=== PATIENT | female | born 1930 | race Caucasian/White ===

== ENCOUNTER 2016-11-04 10:50 | Outpatient (CLI) | payer MEDICARE, OTHER | END 2016-11-04 10:51 | disposition home or self-care (01) | DX: I10 Essential (primary) hypertension (principal); E78.5 Hyperlipidemia, unspecified; D50.9 Iron deficiency anemia, unspecified; E03.9 Hypothyroidism, unspecified ==

== ENCOUNTER 2017-04-25 09:50 | Outpatient (CLI) | payer MEDICARE, OTHER ==
[2017-04-25 13:10] LABS: BASOPHILS % (AUTO) 0.6 %; EOSINOPHILS # (AUTO) 0.3 10^3/uL (0.0-0.7); EOSINOPHILS % (AUTO) 3.9 %; HCT - HEMATOCRIT 36.4 % (37.0-47.0); HGB - HEMOGLOBIN 12.6 g/dL (12.0-16.0); LYMPHOCYTES # (AUTO) 2.8 10^3/uL (1.5-3.5); LYMPHOCYTES % (AUTO) 33.4 %; MEAN CORPUSCULAR HEMOGLOBIN 30.5 pg (27.0-31.0); MEAN CORPUSCULAR HGB CONC 34.7 g/dL (32.0-36.0); MEAN PLATELET VOLUME 6.5 fL (7.9-10.8); MONOCYTES # (AUTO) 0.8 10^3/uL (0.0-1.0); NEUTROPHILS # (AUTO) 4.5 10^3/uL (1.5-6.6); NEUTROPHILS % (AUTO) 53.1 %; RED BLOOD COUNT 4.13 10^6/uL (4.20-5.40); RED CELL DISTRIBUTION WIDTH 14.1 % (12.0-15.0); UNCORRECTED WHITE BLOOD COUNT 8.5 x10^3/uL; WHITE BLOOD COUNT 8.5 x10^3/uL (4.8-10.8)
[2017-04-25 13:35] LABS: FERRITIN 24.9 ng/mL (11.0-306.8)
[2017-04-25 13:48] LABS: THYROID STIMULATING HORMONE 8.27 uIU/mL (0.34-5.60)
[2017-04-25 14:22] LABS: BILIRUBIN,TOTAL 0.5 mg/dL (0.2-1.0); BUN - BLOOD UREA NITROGEN 21 mg/dL (6-20); CALCIUM 9.9 mg/dL (8.5-10.3); CARBON DIOXIDE - CO2 28 mmol/L (21-32); CHLORIDE 98 mmol/L (101-111); CHOL/HDL RATIO 3.5 (<4.4); CHOLESTEROL 187 mg/dL; CREATININE 1.1 mg/dL (0.4-1.0); GFR - MDRD 47 (>89); GLUCOSE 91 mg/dL (70-100); HDL CHOLESTEROL 53 mg/dL; IRON 47 ug/dL (28-170); LDL/HDL RATIO 2.3 (<4.4); POTASSIUM 4.4 mmol/L (3.5-5.0); SODIUM 134 mmol/L (135-145); TOTAL IRON BINDING CAPACITY 367 ug/dL (250-450); TOTAL PROTEIN 6.9 g/dL (6.7-8.2); TRANSFERRIN 262 mg/dL (192-382); TRIGLYCERIDES 69 mg/dL; VLDL CHOLESTEROL 14 mg/dL
== END 2017-04-25 09:51 | disposition home or self-care (01) ==
LOC: LAB.WCP 09:50
PROVIDERS: ATTEND Family Medicine
DX: D50.9 Iron deficiency anemia, unspecified (principal); I10 Essential (primary) hypertension; R53.83 Other fatigue; E78.5 Hyperlipidemia, unspecified; E03.9 Hypothyroidism, unspecified
CPT/HCPCS: 36415; 80053; 80061; 82728; 83540; 84443; 84466; 85025

== ENCOUNTER 2017-05-26 11:58 | Outpatient (CLI) | payer MEDICARE, OTHER | END 2017-05-26 11:59 | disposition home or self-care (01) | LOC: LAB 11:58 | PROVIDERS: ATTEND Family Medicine | DX: E03.9 Hypothyroidism, unspecified (principal) | CPT/HCPCS: 36415; 84443 ==

== ENCOUNTER 2017-09-01 14:43 | Outpatient (CLI) | payer MEDICARE, OTHER ==
--- NOTE | 2017-09-01 19:19 | CT Report ---
CT BRAIN WITHOUT CONTRAST: 09/01/2017 CLINICAL INDICATION: Fall. Axial CT images of the brain were obtained without contrast. In accordance with CT protocol optimization, one or more of the following dose reduction techniques w ere utilized for this exam: automated exposure control, adjustment of mA and/or KV based on patient size, or use of iterative reconstructive technique. No previous CT is available for comparison. The ventricles and sulci demonstrate moderate symmetric enlargement, compatible with atrophy. The ba silar cisterns are patent. There is no evidence of intracranial hemorrhage, mass effect, or midline shift. The visualized orbital contents and paranasal sinuses are unremarkable. No calvarial fractur e is appreciated. IMPRESSION: ATROPHY. NO EVIDENCE OF HEMORRHAGE OR MASS EFFECT. JOB #: [id number] EXT JOB #:[id number]
== END 2017-09-01 14:44 | disposition home or self-care (01) ==
LOC: DI 14:43
PROVIDERS: ATTEND Family Medicine
DX: S09.8XXA Other specified injuries of head, initial encounter (principal); G31.9 Degenerative disease of nervous system, unspecified
CPT/HCPCS: 70450

== ENCOUNTER 2017-10-11 10:29 | Outpatient (CLI) | payer MEDICARE, OTHER ==
[2017-10-11 11:16] LABS: BASOPHILS % (AUTO) 0.7 %; EOSINOPHILS # (AUTO) 0.3 10^3/uL (0.0-0.7); EOSINOPHILS % (AUTO) 3.8 %; HGB - HEMOGLOBIN 12.5 g/dL (12.0-16.0); LYMPHOCYTES # (AUTO) 1.9 10^3/uL (1.5-3.5); LYMPHOCYTES % (AUTO) 28.6 %; MEAN CORPUSCULAR HEMOGLOBIN 28.5 pg (27.0-31.0); MEAN CORPUSCULAR HGB CONC 33.6 g/dL (32.0-36.0); MEAN CORPUSCULAR VOLUME 84.8 fL (81.0-99.0); MEAN PLATELET VOLUME 6.3 fL (7.9-10.8); MONOCYTES # (AUTO) 0.6 10^3/uL (0.0-1.0); MONOCYTES % (AUTO) 9.4 %; NEUTROPHILS # (AUTO) 3.8 10^3/uL (1.5-6.6); NEUTROPHILS % (AUTO) 57.5 %; PLT - PLATELET COUNT 301 10^3/uL (130-450); RED BLOOD COUNT 4.38 10^6/uL (4.20-5.40); RED CELL DISTRIBUTION WIDTH 16.2 % (12.0-15.0); WHITE BLOOD COUNT 6.6 x10^3/uL (4.8-10.8)
[2017-10-11 11:32] LABS: % IRON SATURATION 10 % (20-50); ALBUMIN 3.7 g/dL (3.2-5.5); ALKALINE PHOSPHATASE 71 IU/L (42-121); ALT ALANINE AMINOTRANSFERASE 17 IU/L (10-60); AST ASPARTATE AMINOTRANSFERASE 30 IU/L (10-42); BILIRUBIN,TOTAL 0.6 mg/dL (0.2-1.0); BUN - BLOOD UREA NITROGEN 21 mg/dL (6-20); CALCIUM 10.1 mg/dL (8.5-10.3); CARBON DIOXIDE - CO2 28 mmol/L (21-32); CHLORIDE 100 mmol/L (101-111); CHOL/HDL RATIO 3.1 (<4.4); CHOLESTEROL 185 mg/dL; GFR - MDRD 52 (>89); GLUCOSE 95 mg/dL (70-100); HDL CHOLESTEROL 59 mg/dL; IRON 41 ug/dL (28-170); LDL CHOLESTEROL,CALCULATED 111 mg/dL; LDL/HDL RATIO 1.9 (<4.4); SODIUM 137 mmol/L (135-145); TOTAL IRON BINDING CAPACITY 405 ug/dL (250-450); TOTAL PROTEIN 7.5 g/dL (6.7-8.2); TRANSFERRIN 289 mg/dL (192-382); VLDL CHOLESTEROL 15 mg/dL
[2017-10-11 11:45] LABS: THYROID STIMULATING HORMONE 3.13 uIU/mL (0.34-5.60)
[2017-10-11 11:50] LABS: FERRITIN 31.7 ng/mL (11.0-306.8)
== END 2017-10-11 10:30 | disposition home or self-care (01) ==
LOC: LAB 10:29
PROVIDERS: ATTEND Family Medicine
DX: I10 Essential (primary) hypertension (principal); D50.9 Iron deficiency anemia, unspecified; E03.9 Hypothyroidism, unspecified; E78.5 Hyperlipidemia, unspecified
CPT/HCPCS: 36415; 80053; 80061; 82728; 83540; 84443; 84466; 85025

== ENCOUNTER 2017-10-14 08:00 | Outpatient (CLI) | payer MEDICARE, OTHER ==
[2017-10-14 11:51] LABS: H. PYLORIS ANTIGEN STL NEGATIVE (Negative)
== END 2017-10-14 08:01 | disposition home or self-care (01) ==
LOC: LAB.R 08:00
PROVIDERS: ATTEND Family Medicine
DX: K29.60 Other gastritis without bleeding (principal)
CPT/HCPCS: 87338

== ENCOUNTER 2017-11-28 11:48 | Outpatient (CLI) | payer MEDICARE, OTHER ==
[2017-11-28 19:43] LABS: % IRON SATURATION 11 % (20-50); IRON 41 ug/dL (28-170); TOTAL IRON BINDING CAPACITY 364 ug/dL (250-450); TRANSFERRIN 260 mg/dL (192-382)
[2017-11-28 19:55] LABS: BASOPHILS % (AUTO) 0.5 %; EOSINOPHILS # (AUTO) 0.2 10^3/uL (0.0-0.7); EOSINOPHILS % (AUTO) 2.9 %; HGB - HEMOGLOBIN 12.6 g/dL (12.0-16.0); LYMPHOCYTES # (AUTO) 1.7 10^3/uL (1.5-3.5); LYMPHOCYTES % (AUTO) 24.7 %; MEAN CORPUSCULAR HEMOGLOBIN 28.4 pg (27.0-31.0); MEAN CORPUSCULAR HGB CONC 33.2 g/dL (32.0-36.0); MEAN CORPUSCULAR VOLUME 85.6 fL (81.0-99.0); MEAN PLATELET VOLUME 7.1 fL (7.9-10.8); MONOCYTES # (AUTO) 0.7 10^3/uL (0.0-1.0); MONOCYTES % (AUTO) 10.8 %; NEUTROPHILS # (AUTO) 4.2 10^3/uL (1.5-6.6); NEUTROPHILS % (AUTO) 61.1 %; PLT - PLATELET COUNT 296 10^3/uL (130-450); RED BLOOD COUNT 4.43 10^6/uL (4.20-5.40); RED CELL DISTRIBUTION WIDTH 17.1 % (12.0-15.0); WHITE BLOOD COUNT 6.9 x10^3/uL (4.8-10.8)
== END 2017-11-28 11:49 | disposition home or self-care (01) ==
LOC: LAB.WCP 11:48
PROVIDERS: ATTEND Family Medicine
DX: D50.9 Iron deficiency anemia, unspecified (principal)
CPT/HCPCS: 36415; 82728; 83540; 84466; 85025

== ENCOUNTER 2017-12-15 09:53 | Outpatient (CLI) | payer MEDICARE, OTHER ==
[2017-12-15] MEDS ORDERED: REGADENOSON 0.4 MG/5 ML SYRINGE IVP ONE ×2 (10:53→13:47)
--- NOTE | 2017-12-15 15:26 | CARDIAC PROCEDURE NOTE ---
DATE OF SERVICE: 12/15/2017 Physician: ANA Hummel PRIMARY CARE PHYSICIAN: Dr. Arlette Nicholson PROCEDURE: Pharmacologic cardiac stress test. PROCEDURE SYMPTOMS: History of cardiac arrhythmias, atypical chest pain. CARDIAC RISK FACTORS: Include age, hypertension and hyperlipidemia. The patient has previously had a pharmacologic stress test. CLINICAL HISTORY: An 87-year-old female without known coronary artery disease. She has no current symptoms and no medications were held. INITIAL RESTING VITAL SIGNS: BP 162/68, heart rate 49, height 60 inches, weight 170 pounds, BMI 32.4. PROCEDURE AND FINDINGS: Patient identity and date verified, consent signed, pharmaceutical check. Pharmacologic stress testing was performed with Lexiscan at a dose of 0.4 mg over 10 seconds. The heart rate increased to 83 beats per minute from the infusion. The blood pressure response was normal during the stress procedure. The patient developed mild infusion-related symptoms, which included a tight chest, deep breathing and headache. These resolved spontaneously. The resting electrocardiogram demonstrated sinus rhythm with sinus pauses and no ST or T-wave changes. There was no ST segment depression with stress. The sinus pauses were less than 1 second in length. FINAL IMPRESSION 1. Sinus rhythm with occasional sinus pauses. 2. Negative electrocardiogram for ischemia in the setting of vasodilator stress. 3. Nondiagnostic stress test for angina. 4. Await myocardial perfusion report. TD: 12/15/2017 15:25
[2017-12-15 16:12] VITALS: BP 162/68
--- NOTE | 2017-12-15 16:43 | Nuclear Medicine Report ---
EXAM: SINGLE-ISOTOPE PHARMACOLOGICAL STRESS TEST WITH REGADENOSON. SINGLE-ISOTOPE AND ONE-DAY REST/STRESS M YOCARDIAL PERFUSION SCANS WITH TOMOGRAPHIC IMAGING, QUANTITATIVE ANALYSIS, WALL MOTION ANALYSIS AND C ALCULATION OF EJECTION FRACTION. EXAM DATE: 12/15/2017 02:41 PM. CLINICAL HISTORY: CHEST PAIN, CARDIAC ARRHYTHMIA. COMPARISON: None. TECHNIQUE: After the intravenous administration of 9.0 mCi of Tc-99m sestamibi, a rest myocardial perfusion scan was done with tomography. Motion correction was applied when appropriate. After an appropriate delay, pharmacological stress was performed with the infusion of 0.4 mg regadeno son per protocol. According to protocol, 40.9 mCi of Tc-99m sestamibi was injected for stress myocard ial perfusion scan. Motion correction was applied when appropriate. Gated tomographic images were obtained for wall motion analysis and computation of left ventricular e jection fraction. FINDINGS: Perfusion images: Left ventricular chamber size is normal at rest and unchanged at stress. No convincing fixed perfusion deficits. No convincing reversible perfusion deficits. Gated images: No focal wall motion abnormality. The left ventricular ejection fraction is estimated at 72% (normal > 50%). IMPRESSION: 1. No convincing reversible perfusion deficits to indicate stress-induced ischemia. 2. No convincing fixed perfusion deficits. 3. Left ventricular ejection fraction of 72% (normal > 50%). 4. No focal wall motion abnormalities. [facility] Referring Provider Line: [phone] SITE ID: [id number]
== END 2017-12-15 09:54 | disposition home or self-care (01) ==
LOC: DI 09:53
PROVIDERS: ATTEND Family Medicine
DX: I49.9 Cardiac arrhythmia, unspecified (principal); R07.89 Other chest pain; I10 Essential (primary) hypertension; E78.5 Hyperlipidemia, unspecified
CPT/HCPCS: 78452; 93017; A9500; J2785

== ENCOUNTER 2017-12-20 17:09 | Outpatient (CLI) | payer MEDICARE, OTHER ==
[2017-12-20 17:27] LABS: BASOPHILS # (AUTO) 0.1 10^3/uL (0.0-0.1); BASOPHILS % (AUTO) 0.8 %; EOSINOPHILS # (AUTO) 0.3 10^3/uL (0.0-0.7); EOSINOPHILS % (AUTO) 4.2 %; HGB - HEMOGLOBIN 12.6 g/dL (12.0-16.0); LYMPHOCYTES # (AUTO) 2.1 10^3/uL (1.5-3.5); LYMPHOCYTES % (AUTO) 27.6 %; MEAN CORPUSCULAR HEMOGLOBIN 28.4 pg (27.0-31.0); MEAN CORPUSCULAR HGB CONC 33.9 g/dL (32.0-36.0); MEAN CORPUSCULAR VOLUME 83.8 fL (81.0-99.0); MEAN PLATELET VOLUME 5.9 fL (7.9-10.8); MONOCYTES # (AUTO) 0.7 10^3/uL (0.0-1.0); MONOCYTES % (AUTO) 10.1 %; NEUTROPHILS # (AUTO) 4.3 10^3/uL (1.5-6.6); NEUTROPHILS % (AUTO) 57.3 %; PLT - PLATELET COUNT 286 10^3/uL (130-450); RED BLOOD COUNT 4.44 10^6/uL (4.20-5.40); RED CELL DISTRIBUTION WIDTH 15.2 % (12.0-15.0); WHITE BLOOD COUNT 7.5 x10^3/uL (4.8-10.8)
[2017-12-20 17:41] LABS: ALBUMIN 3.7 g/dL (3.2-5.5); ALBUMIN/GLOBULIN RATIO 0.9 (1.0-2.2); BILIRUBIN,TOTAL 0.6 mg/dL (0.2-1.0); CALCIUM 9.9 mg/dL (8.5-10.3); CREATININE 0.9 mg/dL (0.4-1.0); TOTAL PROTEIN 7.6 g/dL (6.7-8.2)
[2017-12-20] MEDS ORDERED: IOPAMIDOL-300 100 ML VIAL ONE (17:52)
[2017-12-20] MEDS ORDERED: IOPAMIDOL-300 100 ML VIAL IVP ONE (18:39)
--- NOTE | 2017-12-20 19:39 | CT Report ---
EXAM: CT ANGIOGRAM CHEST EXAM DATE: 12/20/2017 06:36 PM. CLINICAL HISTORY: Dyspnea on exertion for 10 days. COMPARISON: None. TECHNIQUE: Routine helical imaging was performed through the chest in the pulmonary arterial phase. I V Contrast: 80 cc of Isovue 300. Reconstructions: Coronal 3-D MIP reconstructions.Sagittal and freitas l. In accordance with CT protocol optimization, one or more of the following dose reduction techniques w ere utilized for this exam: automated exposure control, adjustment of mA and/or KV based on patient s ize, or use of iterative reconstructive technique. FINDINGS: Pulmonary Arteries: Diagnostic quality: Adequate through the segmental arteries. No evidence for acute or chronic pulmona ry emboli. RV/LV is within normal limits. There is no interventricular septal bowing. There is no reflux of cont rast material in the IVC. Lungs/Pleura: Mild peripheral reticulation without honeycombing or groundglass opacities. No consolid ation, nodules, or edema. No effusions or pneumothorax. Mediastinum: Normal. No cardiac enlargement or adenopathy. Thoracic Aorta: Unremarkable. Upper Abdomen: Unremarkable. Other: Levoscoliosis. No compression fractures. IMPRESSION: 1. No pulmonary emboli. 2. No aortic aneurysm. 3. Mild peripheral reticulation compatible with chronic lung disease, with no acute pulmonary abnorma lities. 4. Levoscoliosis. [facility] The call report notification system was initiated by Dr. Mario Alberto Garcia at 19:26 hrs on 12/20/17. The above findings were discussed with Dr. Russ by Dr. Mario Alberto Garcia at 19:37 hrs on 12/20/17. Referring Provider Line: [phone] SITE ID: [id number]
== END 2017-12-20 17:10 | disposition home or self-care (01) ==
LOC: LAB 17:09 → DI 17:10
PROVIDERS: ATTEND Family Medicine
DX: R05 Cough (principal); R06.00 Dyspnea, unspecified
CPT/HCPCS: 71275; 80053; 85025; 87275; 87276; Q9967

== ENCOUNTER 2017-12-20 20:13 | Outpatient (CLI) | payer MEDICARE, OTHER | END 2017-12-20 20:14 | disposition home or self-care (01) | LOC: LAB.WCP 20:13 | PROVIDERS: ATTEND Family Medicine | DX: R05 Cough (principal) | CPT/HCPCS: 87275; 87276 ==

== ENCOUNTER 2018-01-31 20:57 | Emergency (ER) | payer MEDICARE, OTHER ==
--- NOTE | 2018-01-31 21:21 | ED Physician Documentation ---
PD HPI ABD PAIN - Stated complaint Stated Complaint: STOMACH PX - Chief complaint Chief Complaint: Abd Pain - History obtained from History obtained from: Patient - History of Present Illness Timing - onset: Enter time (12:00 (noon)), Today Timing - duration: Hours Timing - details: Gradual onset, Intermittant Pain level max: 9 Pain level now: 8 Quality: Pain Location: Epigastric Radiation: Other (radiates across upper abdomen) Improved by: No: Eating, Laying still, Vomiting, BM, Position, Meds Worsened by: Palpation Associated symptoms: Nausea, Vomiting, Constipation. No: Fever Similar symptoms before: Has not had sx before Recently seen: Not recently seen Review of Systems Constitutional: reports: Reviewed and negative Cardiac: reports: Reviewed and negative Respiratory: reports: Reviewed and negative GI: reports: Abdominal Pain, Nausea, Vomiting, Constipation : denies: Dysuria, Frequency PD PAST MEDICAL HISTORY - Past Medical History Cardiovascular: Hypertension, High cholesterol, Atrial fibrillation GI: GERD Musculoskeletal: Osteoporosis, Chronic back pain Derm: Eczema, Rosacea - Past Surgical History Ortho: Knee replacement /HYDROELECTRIC [employer]OR: Hysterectomy HEENT: Cataracts, Tonsil/Adenoidectomy - Present Medications Home Medications: Ambulatory Orders Medication Instructions Recorded Confirmed Aspirin 1 tab PO DAILY 01/31/18 01/31/18 Raphael Cit/Mag/D3/Zn/Transportation Assistant/Juan Manuel/Bor 1 tab PO DAILY 01/31/18 01/31/18 [Citracal-Vit D + Magnesium Tab] Levothyroxine Sodium 1 tab PO DAILY 01/31/18 01/31/18 Metronidazole [Noritate] 1 applic BID 01/31/18 01/31/18 Ranitidine HCl [Acid Control] 1 tab PO BID 01/31/18 01/31/18 hydroCHLOROthiazide 1 tab PO DAILY 01/31/18 01/31/18 [Hydrochlorothiazide] traMADol [Ultram] 50 - 100 mg PO Q6H PRN #20 tablet 02/01/18 - Allergies Allergies/Adverse Reactions: Allergies Allergy/AdvReac Type Severity Reaction Status Date / Time acetaminophen [From Vicodin] Allergy Anaphylaxis Verified 01/31/18 21:42 codeine Allergy Anaphylaxis Verified 01/31/18 21:43 hydrocodone [From Vicodin] Allergy Anaphylaxis Verified 01/31/18 21:42 oxycodone [From Percocet] Allergy Anaphylaxis Verified 01/31/18 21:42 Narcotics AdvReac Unknown Uncoded 01/31/18 21:25 PD ED PE NORMAL - Vitals Vital signs reviewed: Yes - General General: Alert and oriented X 3, No acute distress, Well developed/nourished - HEENT HEENT: Moist mucous membranes - Cardiac Cardiac: RRR, No murmur, No gallop, No rub - Respiratory Respiratory: No respiratory distress, Clear bilaterally - Abdomen Abdomen: Normal bowel sounds, Soft, Non tender, Non distended - Derm Derm: Normal color, Warm and dry, No rash - Extremities Extremities: No edema - Neuro Neuro: Alert and oriented X 3 Results - Vitals Vitals: Vital Signs - 24 hr 01/31/18 01/31/18 01/31/18 21:01 22:32 23:42 Temperature 36.1 C L Heart Rate 74 100 58 L Respiratory 20 18 16 Rate Blood Pressure 175/109 H 184/72 H 176/67 H O2 Saturation 98 99 100 02/01/18 02:00 Temperature 36.2 C L Heart Rate 64 Respiratory 16 Rate Blood Pressure 170/68 H O2 Saturation 98 Oxygen O2 Source Room air - Labs Labs: Microbiology 01/31/18 21:08 Urine Culture - Preliminary Urine,Clean Catch CULTURE IN PROGRESS. RESULTS TO FOLLOW. Laboratory Tests 01/31/18 01/31/18 01/31/18 21:08 21:10 21:10 WBC 11.6 H RBC 4.46 Hgb 12.8 Hct 38.2 MCV 85.7 MCH 28.8 MCHC 33.6 RDW 14.3 Plt Count 364 MPV 6.6 L Neut # 8.0 H Lymph # 2.5 Powell # 0.9 Eos # 0.1 Baso # 0.1 Absolute Nucleated RBC 0.01 Nucleated RBC % 0.1 Sodium 131 L Potassium 3.5 Chloride 92 L Carbon Dioxide 28 Anion Gap 11.0 BUN 20 Creatinine 0.9 Estimated GFR (MDRD) 59 L Glucose 110 H Calcium 10.4 H Total Bilirubin 0.7 AST 41 ALT 23 Alkaline Phosphatase 77 Total Protein 7.7 Albumin 3.7 Globulin 4.0 Albumin/Globulin Ratio 0.9 L Lipase 35 Urine Color YELLOW Urine Clarity CLEAR Urine pH 5.5 Ur Specific Arma 1.020 Urine Protein NEGATIVE Urine Glucose (UA) NEGATIVE Urine Ketones TRACE Urine Occult Blood NEGATIVE Urine Nitrite NEGATIVE Urine Bilirubin NEGATIVE Urine Urobilinogen 0.2 (NORMAL) Ur Leukocyte Esterase TRACE H Urine RBC 0-5 Urine WBC 11-25 H Urine WBC Clumps PRESENT Ur Squamous Epith Cells FEW Squamous Urine Bacteria Rare Ur Microscopic Review INDICATED Urine Culture Comments INDICATED - Rads (name of study) CT A/P Radiology: Prelim report reviewed, See rad report PD MEDICAL DECISION MAKING - ED course Complexity details: reviewed old records, reviewed results, re-evaluated patient , considered differential, d/w patient, d/w family ED course: CT A/P consistent with colon cancer, mostly at transverse colon. no evidence of sbo. symptoms (pain) controlled with toradol and ultram, comfortable with being discharged and follow up with pmd. I contacted Dr. Natarajan office, d/w Dr. Russ, communicated test results and patients information. Departure - Departure Disposition: Home, Self Care Clinical Impression: Mass of colon Abdominal pain Qualifiers: Abdominal location: epigastric Qualified Code(s): R10.13 - Epigastric pain Condition: Good Instructions: ED Abdominal Pain Unkn Cause Follow-Up: Arlette Nicholson MD [Primary Care Provider] - Prescriptions: traMADol [Ultram] 50 - 100 mg PO Q6H PRN #20 tablet PRN Reason: Pain Comments: The CT scan performed tonight shows a large mass on your colon; the findings are concerning for colon cancer, but further testing is needed. You need to contact your primary care doctor in the morning to arrange for further testing. They will also likely refer you to specialists such as oncology and general surgery. Discharge Date/Time: 02/01/18 02:20
[2018-01-31 21:41] LABS: BASOPHILS # (AUTO) 0.1 10^3/uL (0.0-0.1); EOSINOPHILS # (AUTO) 0.1 10^3/uL (0.0-0.7); EOSINOPHILS % (AUTO) 0.7 %; HGB - HEMOGLOBIN 12.8 g/dL (12.0-16.0); LYMPHOCYTES # (AUTO) 2.5 10^3/uL (1.5-3.5); LYMPHOCYTES % (AUTO) 21.3 %; MEAN CORPUSCULAR HEMOGLOBIN 28.8 pg (27.0-31.0); MEAN CORPUSCULAR HGB CONC 33.6 g/dL (32.0-36.0); MEAN CORPUSCULAR VOLUME 85.7 fL (81.0-99.0); MEAN PLATELET VOLUME 6.6 fL (7.9-10.8); MONOCYTES # (AUTO) 0.9 10^3/uL (0.0-1.0); PLT - PLATELET COUNT 364 10^3/uL (130-450); RED BLOOD COUNT 4.46 10^6/uL (4.20-5.40); RED CELL DISTRIBUTION WIDTH 14.3 % (12.0-15.0); WHITE BLOOD COUNT 11.6 x10^3/uL (4.8-10.8)
[2018-01-31 21:42] LABS: BILIRUBIN,URINE NEGATIVE (NEGATIVE); GLUCOSE, URINE (UA) NEGATIVE (NEGATIVE); KETONES,URINE (UA) TRACE mg/dL (NEGATIVE); LEUKOCYTE ESTERASE, URINE TRACE (NEGATIVE); NITRITE,URINE NEGATIVE (NEGATIVE); OCCULT BLOOD,URINE NEGATIVE (NEGATIVE); PH,URINE 5.5 PH (5.0-7.5); PROTEIN,URINE NEGATIVE (NEGATIVE); UROBILINOGEN,URINE 0.2 (NORMAL) E.U./dL (NORMAL)
[2018-01-31] MEDS ORDERED: KETOROLAC 60 MG/2 ML VIAL IVP STA (21:43)
[2018-01-31 21:47] LABS: CLARITY,URINE CLEAR (CLEAR)
[2018-01-31 21:53] LABS: RBC,URINE 0-5 /HPF (0-5); WBC CLUMPS,URINE PRESENT
[2018-01-31 21:54] LABS: BACTERIA,URINE Rare /HPF (None Seen); SQUAMOUS EPITHELIAL CELL,UR FEW Squamous (<= Few)
[2018-01-31 21:55] LABS: ALBUMIN 3.7 g/dL (3.2-5.5); ALBUMIN/GLOBULIN RATIO 0.9 (1.0-2.2); BILIRUBIN,TOTAL 0.7 mg/dL (0.2-1.0); CALCIUM 10.4 mg/dL (8.5-10.3); CREATININE 0.9 mg/dL (0.4-1.0); TOTAL PROTEIN 7.7 g/dL (6.7-8.2)
[2018-01-31] MEDS ORDERED: IOPAMIDOL-300 50 ML VIAL ONE (22:06)
[2018-01-31] MEDS ORDERED: IOPAMIDOL-300 100 ML VIAL ONE (22:06)
[2018-01-31] MEDS ORDERED: IOPAMIDOL-300 100 ML VIAL IVP ONE (23:48)
[2018-01-31] MEDS ORDERED: IOPAMIDOL-300 50 ML VIAL PO ONE (23:49)
--- NOTE | 2018-02-01 00:06 | CT Preliminary Report ---
Exam: CT ABDOMEN/PELVIS W/ IMPRESSION: 1. 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 2. Small adjacent lymph node could reflect local metastatic disease. 3. Minimal free fluid an couple of peritoneal nodules in the region of the transverse colon are indet erminate for early carcinomatosis. 4. No definitive metastases seen in the liver. 5. Possible minimal residual edema at the lung bases. There is left atrial enlargement, question mitr al valve disease. 6. Colonic diverticulosis. 7. Post-hysterectomy. Results discussed with Dr. Zuniga. [facility] SITE ID: [id number]
--- NOTE | 2018-02-01 00:15 | CT Report ---
EXAM: CT ABDOMEN AND PELVIS EXAM DATE: 01/31/2018 11:46 PM. CLINICAL HISTORY: Abdomen pain. COMPARISONS: Chest CT 12/20/2017, CT abdomen 08/31/2010. TECHNIQUE: Routine helical CT imaging was performed through the abdomen and pelvis. IV contrast: Yes. Enteric contrast: Yes. Reconstructions: Coronal and sagittal. In accordance with CT protocol optimization, one or more of the following dose reduction techniques w ere utilized for this exam: automated exposure control, adjustment of mA and/or KV based on patient s ize, or use of iterative reconstructive technique. FINDINGS: Lung Bases: Mild cardiomegaly with left atrial enlargement. Suspect minimal interstitial edema at the lung bases. No significant effusion. Liver: Unremarkable. No suspicious masses. Gallbladder/Bile Ducts: Unremarkable. Spleen: Unremarkable. Pancreas: Unremarkable. Adrenal Glands: Unremarkable. Kidneys: Small left renal cyst. No suspicious masses or hydronephrosis. Peritoneal Cavity/Bowel: Large transverse colon mass, consistent with colon cancer. Difficult to isaac ure but grossly measures 84 x 72 mm in cross-section on axial image 45 and extends 81 mm in craniocau alberto dimension on coronal image 11. Cranial aspect of the mass abuts the inferior aspect of the liver but does not appear to invade the liver. Indeterminate small pericolonic lymph node on image 42 serie s 3 measuring 14 x 10 mm posterior to the main mass. No distant kenny metastases seen. Additional cou ple of tiny nodules anterior to the colon on images 40 and 41. Minimal free fluid. No evidence of com plete obstruction. Extensive colonic diverticulosis. Pelvic Organs: Post-hysterectomy with no adnexal masses seen. The bladder appears within normal limit s. Pelvic floor laxity with rectocele present. Vasculature: No aneurysms or other significant abnormality. Bones: No significant abnormality. Other: None. IMPRESSION: 1. 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 2. Small adjacent lymph node could reflect local metastatic disease. 3. Minimal free fluid and a couple of peritoneal nodules in the region of the transverse colon are in determinate for early carcinomatosis. 4. No definitive metastases seen in the liver. 5. Possible minimal interstitial edema at the lung bases. There is left atrial enlargement, question mitral valve disease. 6. Colonic diverticulosis. 7. Post-hysterectomy. Results discussed with Dr. Zuniga. [facility] Referring Provider Line: [phone] SITE ID: [id number]
[2018-02-01] MEDS ORDERED: traMADol 50 MG TABLET PO STA ×2 (01:35→02:05)
[2018-02-01 02:20] VITALS: BP 170/68
== END 2018-02-01 02:20 | disposition home or self-care (01) ==
LOC: ED 20:57
DX: K63.89 Other specified diseases of intestine (principal); R10.13 Epigastric pain; I10 Essential (primary) hypertension; E78.00 Pure hypercholesterolemia, unspecified; Z96.659 Presence of unspecified artificial knee joint; Z79.82 Long term (current) use of aspirin
CPT/HCPCS: 36415; 74177; 80053; 81001; 83690; 85025; 87086; 96374; 99284; A9270; Q9967; 81003

== ENCOUNTER 2018-02-14 11:44 | Outpatient (CLI) | payer MEDICARE, OTHER ==
[2018-02-14 12:26] LABS: ALBUMIN 3.5 g/dL (3.2-5.5); ALBUMIN/GLOBULIN RATIO 0.9 (1.0-2.2); BILIRUBIN,TOTAL 1.1 mg/dL (0.2-1.0); CALCIUM 9.6 mg/dL (8.5-10.3); CREATININE 0.9 mg/dL (0.4-1.0); TOTAL PROTEIN 7.4 g/dL (6.7-8.2)
== END 2018-02-14 11:45 | disposition home or self-care (01) ==
LOC: LAB 11:44
PROVIDERS: ATTEND Surgery
DX: Z01.812 Encounter for preprocedural laboratory examination (principal); C18.9 Malignant neoplasm of colon, unspecified
CPT/HCPCS: 36415; 80053; 84134; 86850; 86900; 86901; 86920